=== PATIENT | female | born 1935 | race Caucasian/White ===

== ENCOUNTER 2022-09-16 18:44 | Emergency (ER) | payer MEDICARE ==
[2022-09-16] MEDS ORDERED: Sodium Chloride 0.9% 500 ML 500 ML IV ONE ×2 (19:11→19:19)
--- NOTE | 2022-09-16 19:51 | XRAY ---
Indication: Weakness. Comparison: April 19, 2016 Portable chest demonstrates new mild pulmonary edema without consolidation/large effusion. Heart now enlarged. Findings may represent mild/early cardiac decompensation. Superimposed pneumonia not completely excluded. Stable left upper lobe calcified granuloma, osteopenia, and bony degenerative changes.
[2022-09-16 20:04] LABS: Hematocrit 31.4 % (35-47); Mean Cell Volume 98.7 fL (78-100); Mean Corpuscular Hemoglobin 31.4 pg (26-32); Mean Corpuscular Hgb Concent. 31.8 g/dL (32-36); Mean Platelet Volume 12.7 fL (7.5-11.0); Platelet Count 182 x10^3/uL (150-450); Red Blood Count 3.18 x10^6/uL (4.1-5.4); Red Cell Distribution Width 13.6 % (11.5-14.0); White Blood Count 6.4 x10^3/uL (4.0-10.5)
[2022-09-16] MEDS ORDERED: Cordarone 150 MG/3 ML Injection IV ONE (20:11)
[2022-09-16 20:13] LABS: INR 1.19 (0.8-3.0); PROTIME 12.4 SECONDS (9.4-12.5); PTT 30.2 SECONDS (25.1-36.5)
[2022-09-16] MEDS ORDERED: Cordarone 150 MG/3 ML Injection ONE (20:15)
[2022-09-16 20:20] LABS: ALBUMIN 3.1 g/dL (3.5-5.0); ANION GAP 17.2 MEQ/L (5-15); BILIRUBIN,TOTAL 1.1 mg/dL (0.2-1.3); Creatinine 1 1.82 mg/dL (0.52-1.04); EST GLOMERULAR FILTRATION RATE 27.9 ML/MIN; Potassium 4.6 mmol/L (3.5-5.1); Total Protein 7.6 g/dL (6.3-8.2)
[2022-09-16] MEDS ORDERED: NEXTERONE 360 MG/200 ML BAG 360 MG/200 ML PLAST..BAG IV ONE (20:20)
[2022-09-16] MEDS ORDERED: D5w 100ML Mini Bag 100 ML 100 ML IV ONE (20:20)
[2022-09-16] MEDS: NEXTERONE 360 MG/200 ML BAG 360 MG/200 ML PLAST..BAG IV SCH (20:24)
--- NOTE | 2022-09-16 20:27 | ERPHSYRPT ---
- History of Present Illness Time Seen by Provider: 09/16/22 18:48 Source: patient, family, EMS Exam Limitations: no limitations Patient Subjective Stated Complaint: weakness Triage Nursing Assessment: Patient brought into ED per EMS and transferred to bed with assist of 2. Patient A+O X 2, disoriented to time. EMS reports being called to home due to decreased b/p and decreased O2 sat. Upon assessment vitals WNL. Patient denies pain or discomfort. Patient states she has been feeling weaker the past few days. Physician History: 86-year-old female with history of coronary artery disease, hypertension, hyperlipidemia, congestive heart failure presented in the ER via EMS with chief complaint of generalized weakness fatigue and tiredness for last 2 weeks with progressive worsening. Patient feels weak and cannot walk properly and has been falling. Did not hit her head and no obvious injury reported. Earlier her blood pressure was in 80s and her oxygen saturation was low at home in upper 80s. Patient oxygen saturation is around 94% on presentation in the ER on room air. She denies any chest pain palpitations or shortness of breath. No abdominal pain nausea or vomiting. No fever or chills reported. Patient has recently been seen at primary care and has been getting treatment for bronchitis with amoxicillin. Timing/Duration: week(s) (2), gradual onset, worse Severity: moderate Modifying Factors: Improves With: rest. Worsens With: movement Associated Symptoms: weakness, No nausea, No vomiting, No abdominal pain, No shortness of breath, No heartburn, No diaphoresis, No cough, No chills, No chest pain, No fever, No headaches, No syncope, No seizure Allergies/Adverse Reactions: atorvastatin calcium [From Lipitor] Allergy (Unknown, Verified 09/16/22 18:48) hands became swollen and itched Home Medications: Aspirin 2 tab PO DAILY 02/17/15 [History] Furosemide [Lasix] 40 mg PO DAILY 02/17/15 [History] Pravastatin Sodium 40 mg PO DAILY 02/17/15 [History] Carvedilol 12.5 mg [Coreg 12.5 mg] 12.5 mg PO BID 04/19/16 [History] Losartan Potassium 100 mg PO DAILY 04/19/16 [History] Nitroglycerin 0.4 mg SL UD 04/19/16 [History] Acetaminophen/Diphenhydramine [Tylenol Pm Ex-Strength Caplet] 1 each PO HS PRN 04/21/16 [History] Hx Influenza Vaccination/Date Given: No Hx Pneumococcal Vaccination/Date Given: No Immunizations Up to Date: Yes Travel Risk - International Travel Have you traveled outside of the country in past 3 weeks: No - Coronavirus Screening Are you exhibiting any of the following symptoms?: No Close contact with a COVID-19 positive Pt in past 14-21 Days: No - Vaccine Status Have you recieved a Covid-19 vaccination: No - Review of Systems Constitutional: Fatigue, Weakness Eyes: No Symptoms Ears, Nose, & Throat: No Symptoms Respiratory: No Symptoms Cardiac: No Symptoms Abdominal/Gastrointestinal: No Symptoms Genitourinary Symptoms: No Symptoms Musculoskeletal: Arthralgias Skin: No Symptoms Neurological: No Symptoms Psychological: No Symptoms Endocrine: No Symptoms Hematologic/Lymphatic: No Symptoms Immunological/Allergic: No Symptoms - Past Medical History Pertinent Past Medical History: Yes Neurological History: No Pertinent History ENT History: Cataracts Cardiac History: High Cholesterol, Hypertension, Myocardial Infarction ([place]) Respiratory History: Bronchitis Endocrine Medical History: No Pertinent History Musculoskeletal History: No Pertinent History GI Medical History: Hemorrhoids History: No Pertinent History Psycho-Social History: No Pertinent History Female Reproductive Disorders: No Pertinent History - Past Surgical History Past Surgical History: Yes Neuro Surgical History: No Pertinent History Cardiac: Cardiac Catheterization, Cardiac Stent Respiratory: No Pertinent History Gastrointestinal: No Pertinent History Genitourinary: No Pertinent History Musculoskeletal: No Pertinent History Female Surgical History: Tubal Ligation - Social History Smoking Status: Former smoker How long have you smoked: 30 Exposure to second hand smoke: No Drug Use: none Patient Lives Alone: No - Nursing Vital Signs Nursing Vital Signs: Initial Vital Signs Temperature 98.3 F 09/16/22 18:49 Pulse Rate 67 09/16/22 18:49 Respiratory Rate 18 09/16/22 18:49 Blood Pressure 113/88 09/16/22 18:49 O2 Sat by Pulse Oximetry 97 09/16/22 18:49 Pain Scale Pain Intensity 0 - Physical Exam General Appearance: no apparent distress, alert Eye Exam: eyes nml inspection Ears, Nose, Throat Exam: normal ENT inspection, pharynx normal Neck Exam: normal inspection, full range of motion Respiratory Exam: diminished breath sounds, rhonchi Cardiovascular Exam: normal heart sounds, tachycardia, irregular Back Exam: normal inspection, normal range of motion Extremity Exam: normal inspection, normal range of motion Neurologic Exam: alert, oriented x 3, cooperative Skin Exam: normal color SpO2 Interpretation: normal SpO2: 95 O2 Delivery: Room Air - Course EKG Interpreted by Me: RATE ([id number]), A-fib, NORMAL AXIS, NORMAL INTERVALS, Non-specific ST Changes Ordered Tests: Active Orders 24 hr Category Date Time Status Drum Sealer STAT Care 09/16/22 19:11 Active EKG-ER Only STAT Care 09/16/22 19:10 Active IV Insertion STAT Care 09/16/22 19:10 Active IV Insertion-2nd Peripheral STAT Care 09/16/22 19:34 Active CHEST 1 VIEW (PORTABLE) Stat Exams 09/16/22 19:11 Completed BLOOD CULTURE Stat Lab 09/16/22 19:30 Received CBC W DIFF Stat Lab 09/16/22 19:28 Completed CMP Stat Lab 09/16/22 19:28 Completed CULTURE,URINE Stat Lab 09/16/22 19:30 Received Lactic Acid Stat Lab 09/16/22 19:24 Completed MAGNESIUM Stat Lab 09/16/22 19:28 Completed Manual Differential NC Stat Lab 09/16/22 19:28 Completed NT PRO BNP Stat Lab 09/16/22 19:28 Completed PROCALCITONIN Stat Lab 09/16/22 19:28 Completed PROTIME WITH INR Stat Lab 09/16/22 19:28 Completed PTT Stat Lab 09/16/22 19:28 Completed TROPONIN Q4H Lab 09/16/22 19:28 Completed TROPONIN Q4H Lab 09/16/22 23:15 Ordered TROPONIN Q4H Lab 09/17/22 03:15 Ordered UA W/RFX CULTURE Stat Lab 09/16/22 19:30 Completed Medication Summary Generic Name Dose Route Start Last Admin Trade Name Freq PRN Reason Stop Dose Admin Amiodarone HCl/Dextrose 360 mg in 200 mls @ 33 mls/hr 09/16/22 20:15 09/16/22 20:24 Nexterone 360 Mg/200 Ml Bag IV 10/16/22 20:14 33 mls/hr .Q6H4M MARGIE 33 mls/hr Administration Protocol Sodium Chloride 1,000 mls @ 100 mls/hr 09/16/22 21:30 09/16/22 21:27 Sodium Chloride 0.9% 1000 Ml IV 10/16/22 21:29 100 mls/hr .Q10H MARGIE Administration Discontinued Medications Generic Name Dose Route Start Last Admin Trade Name Shelley PRN Reason Stop Dose Admin Amiodarone HCl 150 mg 09/16/22 20:11 09/16/22 20:22 Amiodarone Hcl 150 Mg/3 Ml Vial IV 09/16/22 20:12 150 mg STAT ONE Administration Amiodarone HCl Confirm 09/16/22 20:15 Amiodarone Hcl 150 Mg/3 Ml Vial Administered 09/16/22 20:16 Dose 150 mg .ROUTE .STK-MED ONE Sodium Chloride 500 mls @ 500 mls/hr 09/16/22 19:11 09/16/22 20:20 Sodium Chloride 0.9% 500 Ml IV 09/16/22 20:10 Infused .Q1H ONE Infusion Sodium Chloride Confirm 09/16/22 19:19 Sodium Chloride 0.9% 500 Ml Administered 09/16/22 19:20 Dose 500 mls @ ud IV .STK-MED ONE Dextrose Confirm 09/16/22 20:20 D5w 100ml Mini Bag 100 Ml Administered 09/16/22 20:21 Dose 100 mls @ ud IV .STK-MED ONE Piperacillin Sod/Tazobactam 100 mls @ 200 mls/hr 09/16/22 21:36 09/16/22 21:58 Sod 2.25 gm/ Sodium Chloride IV 09/16/22 22:05 200 mls/hr STAT ONE Administration Sodium Chloride Confirm 09/16/22 21:40 Sodium Chloride 100ml Mini-Bag Plus Administered 09/16/22 21:41 Dose 100 mls @ ud IV .STK-MED ONE Sodium Chloride Confirm 09/16/22 21:41 Sodium Chloride 100ml Mini-Bag Plus Administered 09/16/22 21:42 Dose 100 mls @ ud IV .STK-MED ONE Lab/Rad Data: Laboratory Result Diagrams 09/16/22 19:28 09/16/22 19:28 Laboratory Results 09/16/22 09/16/22 09/16/22 Range/Units 19:30 19:28 19:28 WBC (4.0-10.5) x10^3/uL RBC (4.1-5.4) x10^6/uL Hgb (12.0-16.0) g/dL Hct (35-47) % MCV (78-100) fL MCH (26-32) pg MCHC (32-36) g/dL RDW (11.5-14.0) % Plt Count (150-450) x10^3/uL MPV (7.5-11.0) fL PT (9.4-12.5) SECONDS INR (0.8-3.0) APTT (25.1-36.5) SECONDS Sodium (137-145) mmol/L Potassium (3.5-5.1) mmol/L Chloride (98-107) mmol/L Carbon Dioxide (22-30) mmol/L Anion Gap (5-15) MEQ/L BUN (7-17) mg/dL Creatinine (0.52-1.04) mg/dL Estimated GFR ML/MIN Glucose (74-106) mg/dL Lactic Acid (0.4-2.0) Calcium (8.4-10.2) mg/dL Magnesium (1.6-2.3) mg/dL Total Bilirubin (0.2-1.3) mg/dL AST (14-36) U/L ALT (0-35) U/L Alkaline Phosphatase (38-126) U/L Troponin I 0.064 H* (0.000-0.034) ng/mL NT-Pro-B Natriuret Pep (0-1800) pg/mL Serum Total Protein (6.3-8.2) g/dL Albumin (3.5-5.0) g/dL Procalcitonin 0.109 H (0.030-0.080) ng/mL Urinalys Dipstick Clnc MAIN LAB Urine Color YELLOW (YELLOW) Urine Appearance CLEAR (CLEAR) Urine pH 5.0 (5-6) Ur Specific [place] 1.025 (1.005-1.025) POC Urine Protein Conf NEGATIVE (Negative) Urine Ketones TRACE A (NEGATIVE) Urine Nitrite NEGATIVE (NEGATIVE) Urine Bilirubin MODERATE A (NEGATIVE) Urine Urobilinogen 1 A (0-1) mg/dL Urine Leukocytes NEGATIVE (NEGATIVE) Urine WBC (Auto) NONE (0-5) /HPF Urine RBC (Auto) 0-2 (0-2) /HPF U Hyaline Cast (Auto) 6-10 A (0-2) /LPF U Epithel Cells (Auto) NONE (FEW) /HPF Urine Bacteria (Auto) RARE (NEGATIVE) /HPF Urine RBC NEGATIVE (0-5) Ryder/ul Urine Mucus (Auto) SLIGHT A (NEGATIVE) /HPF Ur Culture Indicated? YES Urine Glucose NEGATIVE (NEGATIVE) mg/dL 09/16/22 09/16/22 09/16/22 Range/Units 19:28 19:28 19:28 WBC 6.4 (4.0-10.5) x10^3/uL RBC 3.18 L (4.1-5.4) x10^6/uL Hgb 10.0 L (12.0-16.0) g/dL Hct 31.4 L (35-47) % MCV 98.7 (78-100) fL MCH 31.4 (26-32) pg MCHC 31.8 L (32-36) g/dL RDW 13.6 (11.5-14.0) % Plt Count 182 (150-450) x10^3/uL MPV 12.7 H (7.5-11.0) fL PT 12.4 (9.4-12.5) SECONDS INR 1.19 (0.8-3.0) APTT 30.2 (25.1-36.5) SECONDS Sodium 136 L (137-145) mmol/L Potassium 4.6 (3.5-5.1) mmol/L Chloride 103 (98-107) mmol/L Carbon Dioxide 21 L (22-30) mmol/L Anion Gap 17.2 H (5-15) MEQ/L BUN 59 H (7-17) mg/dL Creatinine 1.82 H (0.52-1.04) mg/dL Estimated GFR 27.9 ML/MIN Glucose 95 (74-106) mg/dL Lactic Acid (0.4-2.0) Calcium 8.0 L (8.4-10.2) mg/dL Magnesium 2.0 (1.6-2.3) mg/dL Total Bilirubin 1.10 (0.2-1.3) mg/dL AST 26 (14-36) U/L ALT 14 (0-35) U/L Alkaline Phosphatase 46 (38-126) U/L Troponin I (0.000-0.034) ng/mL NT-Pro-B Natriuret Pep 52819 H (0-1800) pg/mL Serum Total Protein 7.6 (6.3-8.2) g/dL Albumin 3.1 L (3.5-5.0) g/dL Procalcitonin (0.030-0.080) ng/mL Urinalys Dipstick Clnc Urine Color (YELLOW) Urine Appearance (CLEAR) Urine pH (5-6) Ur Specific [place] (1.005-1.025) POC Urine Protein Conf (Negative) Urine Ketones (NEGATIVE) Urine Nitrite (NEGATIVE) Urine Bilirubin (NEGATIVE) Urine Urobilinogen (0-1) mg/dL Urine Leukocytes (NEGATIVE) Urine WBC (Auto) (0-5) /HPF Urine RBC (Auto) (0-2) /HPF U Hyaline Cast (Auto) (0-2) /LPF U Epithel Cells (Auto) (FEW) /HPF Urine Bacteria (Auto) (NEGATIVE) /HPF Urine RBC (0-5) Ryder/ul Urine Mucus (Auto) (NEGATIVE) /HPF Ur Culture Indicated? Urine Glucose (NEGATIVE) mg/dL 09/16/22 Range/Units 19:24 WBC (4.0-10.5) x10^3/uL RBC (4.1-5.4) x10^6/uL Hgb (12.0-16.0) g/dL Hct (35-47) % MCV (78-100) fL MCH (26-32) pg MCHC (32-36) g/dL RDW (11.5-14.0) % Plt Count (150-450) x10^3/uL MPV (7.5-11.0) fL PT (9.4-12.5) SECONDS INR (0.8-3.0) APTT (25.1-36.5) SECONDS Sodium (137-145) mmol/L Potassium (3.5-5.1) mmol/L Chloride (98-107) mmol/L Carbon Dioxide (22-30) mmol/L Anion Gap (5-15) MEQ/L BUN (7-17) mg/dL Creatinine (0.52-1.04) mg/dL Estimated GFR ML/MIN Glucose (74-106) mg/dL Lactic Acid 1.5 (0.4-2.0) Calcium (8.4-10.2) mg/dL Magnesium (1.6-2.3) mg/dL Total Bilirubin (0.2-1.3) mg/dL AST (14-36) U/L ALT (0-35) U/L Alkaline Phosphatase (38-126) U/L Troponin I (0.000-0.034) ng/mL NT-Pro-B Natriuret Pep (0-1800) pg/mL Serum Total Protein (6.3-8.2) g/dL Albumin (3.5-5.0) g/dL Procalcitonin (0.030-0.080) ng/mL Urinalys Dipstick Clnc Urine Color (YELLOW) Urine Appearance (CLEAR) Urine pH (5-6) Ur Specific [place] (1.005-1.025) POC Urine Protein Conf (Negative) Urine Ketones (NEGATIVE) Urine Nitrite (NEGATIVE) Urine Bilirubin (NEGATIVE) Urine Urobilinogen (0-1) mg/dL Urine Leukocytes (NEGATIVE) Urine WBC (Auto) (0-5) /HPF Urine RBC (Auto) (0-2) /HPF U Hyaline Cast (Auto) (0-2) /LPF U Epithel Cells (Auto) (FEW) /HPF Urine Bacteria (Auto) (NEGATIVE) /HPF Urine RBC (0-5) Ryder/ul Urine Mucus (Auto) (NEGATIVE) /HPF Ur Culture Indicated? Urine Glucose (NEGATIVE) mg/dL - Progress Progress: improved, re-examined Progress Note: 09/16/22 21:53 86 years old is evaluated for generalized weakness. Patient is hypotensive on presentation, given fluid bolus and still hypotensive and has A. fib with RVR with no previous history. Work-up showed normal white count, normal lactate and chest x-ray showed finding consistent with pulmonary edema/congestion with elevated BNP and initial troponin 1.061. EKG did not show ST elevation but A. fib with RVR. Patient has no chest pain at all. She is not short of breath. She is started on amiodarone and now heart rate in low 100s. Does have elevated procalcitonin and chest x-ray showed questionable pneumonia as well, given a dose of Zosyn. Discussed with Dr. Vaughan, recommended transfer to facility with cardiology services. [facility] is at diversion, called [facility] and waiting for callback. Plan discussed with patient who understand and agrees with it. 09/16/22 22:[address] Brice at [facility], reviewed history, work-up and agreed with transfer. Discussed with : Bárbara Counseled pt/family regarding: lab results, diagnosis, rad results - Departure Departure Disposition: Transfer Clinical Impression: Atrial fibrillation with RVR, CHF exacerbation, AJ (acute kidney injury), AJ Condition: Stable Critical Care Time: No Referrals: CORKY DUGGAN [Primary Care Provider] - Follow up/PCP as directed Instructions: Heart Failure
[2022-09-16 20:31] LABS: Appearance CLEAR (CLEAR); Bilirubin MODERATE (NEGATIVE); Dipstick done @ ? MAIN LAB; Glucose NEGATIVE (NEGATIVE); Ketones TRACE (NEGATIVE); Nitrite NEGATIVE (NEGATIVE); Protein,Urine Dip NEGATIVE (Negative); RBC NEGATIVE Ery/ul (0-5); Specific Gravity 1.025 (1.005-1.025); Urobilinogen 1 mg/dL (0-1)
[2022-09-16 20:36] LABS: Bacteria RARE /HPF (NEGATIVE); Mucus SLIGHT /HPF (NEGATIVE); RBC 0-2 /HPF (0-2)
[2022-09-16 20:39] LABS: Urine Cultured Indicated? YES
[2022-09-16] MEDS ORDERED: Sodium Chloride 0.9% 1000 ML 1,000 ML IV SCH (21:30)
[2022-09-16] MEDS ORDERED: Piperacillin/Tazobactam 2.25 GM 2.25 GM in Sodium Chloride 100ML MINI-BAG PLUS 100 ML IV ONE (21:36)
[2022-09-16] MEDS ORDERED: Sodium Chloride 100ML MINI-BAG PLUS 0 ML IV ONE (21:40)
[2022-09-16] MEDS ORDERED: Sodium Chloride 100ML MINI-BAG PLUS 100 ML IV ONE (21:41)
[2022-09-16] MEDS ORDERED: Lanoxin 0.5 MG/2 ML INJECTION IV ONE (22:47)
[2022-09-16] MEDS ORDERED: Lanoxin 0.5 MG/2 ML INJECTION ONE (22:49)
[2022-09-16] MEDS ORDERED: Dopamine 400 MG/D5W 250ML PREMIX 250 ML IV PRN (23:53)
[2022-09-16 23:58] LABS: Eosinophil 2 % (0.00-3.0); Lymphocytes 21 % (24-44); Monocyte 4 % (0.0-12.0); Total Cells Counted 100
[2022-09-16 23:59] LABS: Platelet Estimate NORMAL (NORMAL)
[2022-09-17] MEDS ORDERED: NEXTERONE 360 MG/200 ML BAG 360 MG/200 ML PLAST..BAG IV ONE (02:27)
[2022-09-17] MEDS: NEXTERONE 360 MG/200 ML BAG 360 MG/200 ML PLAST..BAG IV SCH (02:30)
[2022-09-17 03:52] VITALS: BP 114/78; PULSE 104; O2SAT 96
== END 2022-09-17 03:53 | disposition short-term general hospital (02) ==
LOC: ED 18:44
DX: I48.20 Chronic atrial fibrillation, unspecified (principal); I11.0 Hypertensive heart disease with heart failure; I50.9 Heart failure, unspecified; N17.9 Acute kidney failure, unspecified; R53.1 Weakness; Z91.81 History of falling; E78.5 Hyperlipidemia, unspecified; Z79.899 Other long term (current) drug therapy; Z28.310 Unvaccinated for COVID-19
CPT/HCPCS: 36000; 36415; 71045; 80053; 81015; 83605; 83735; 83880; 84145; 84484; 85025; 85610; 85730; 87040; 87086; 93005; 93041; 96360; 96361; 96374; 96375; 96376; 99285; J0282; J1160; J1265; J2543

== ENCOUNTER 2022-11-11 12:03 | Inpatient (IN) | payer MEDICARE, OTHER ==
--- NOTE | 2022-11-11 12:13 | ERPHSYRPT ---
- History of Present Illness Time Seen by Provider: 11/11/22 12:12 Source: patient, family, EMS, old records Exam Limitations: no limitations Patient Subjective Stated Complaint: PT states "I was getting up to the bathroom and missed the pot and fell." Triage Nursing Assessment: PT presented alert and slightly confused. Pt left ankle has obvious deformity. Pt speech is slow and deliberate. PT no other injuries noted. CSM X 4 Physician History: This is an 87-year-old white female patient Dr. Duggan who was brought into the emergency department by EMS and is on hospice for congestive heart failure and chronic weakness and recurrent falls. Patient has a history of CHF, atrial fibrillation, coronary artery disease and hypertension. She arrives emergency department with a systolic blood pressure of 109. Patient presents to the emergency department with left ankle pain after fall. She was getting up to use the bathroom when she fell and twisted her left ankle. There is some swelling and bruising in the lateral aspect of the left ankle with mild deformity present. Patient denies chest pain. She denies shortness of breath. Occurred: just prior to arrival Reason for Fall: tripped Injuries/Pain Location: lower extremity Loss of Consciousness: no loss of consciousness Quality: aching Severity of Pain-Max: mild (When moving) Severity of Pain-Current: none (Denies pain when not moving) Modifying Factors: Improves With: movement Associated Symptoms (Fall): trouble walking Allergies/Adverse Reactions: atorvastatin calcium [From Lipitor] Allergy (Unknown, Verified 09/16/22 18:48) hands became swollen and itched Home Medications: Aspirin 1 tab PO DAILY 02/17/15 [History] Furosemide [Lasix] 40 mg PO DAILY 02/17/15 [History] Pravastatin Sodium 80 mg PO DAILY 02/17/15 [History] Acetaminophen/Diphenhydramine [Tylenol Pm Ex-Strength Caplet] 650 mg PO HS PRN 04/21/16 [History] Apixaban [Eliquis] 2.5 mg PO BID 11/11/22 [History] Cholecalciferol (Vitamin D3) [Vitamin D] 1 tablet PO DAILY 11/11/22 [History] Magnesium Hydroxide 30 ml [Milk of Magnesia 30 ml] 30 ml PO DAILY PRN PRN 11/11/22 [History] Metoprolol Succinate 25 mg PO DAILY 11/11/22 [History] Hx Tetanus, Diphtheria Vaccination/Date Given: No Hx Influenza Vaccination/Date Given: No Hx Pneumococcal Vaccination/Date Given: No Immunizations Up to Date: Yes Travel Risk - International Travel Have you traveled outside of the country in past 3 weeks: No - Coronavirus Screening Are you exhibiting any of the following symptoms?: No Close contact with a COVID-19 positive Pt in past 14-21 Days: No - Vaccine Status Have you recieved a Covid-19 vaccination: No - Review of Systems Constitutional: Weakness Eyes: No Symptoms Ears, Nose, & Throat: No Symptoms (Chronic) Respiratory: No Symptoms Cardiac: No Symptoms Abdominal/Gastrointestinal: No Symptoms Genitourinary Symptoms: No Symptoms Musculoskeletal: Injury (Left ankle) Skin: No Symptoms Neurological: No Symptoms Psychological: No Symptoms Endocrine: No Symptoms Hematologic/Lymphatic: No Symptoms Immunological/Allergic: No Symptoms All Other Systems: Reviewed and Negative - Past Medical History Pertinent Past Medical History: Yes Neurological History: No Pertinent History ENT History: Cataracts Cardiac History: High Cholesterol, Hypertension, Myocardial Infarction (NH) Respiratory History: Bronchitis Endocrine Medical History: No Pertinent History Musculoskeletal History: No Pertinent History GI Medical History: Hemorrhoids History: No Pertinent History Psycho-Social History: No Pertinent History Female Reproductive Disorders: No Pertinent History - Past Surgical History Past Surgical History: Yes Neuro Surgical History: No Pertinent History Cardiac: Cardiac Catheterization, Cardiac Stent Respiratory: No Pertinent History Gastrointestinal: No Pertinent History Genitourinary: No Pertinent History Musculoskeletal: No Pertinent History Female Surgical History: Tubal Ligation - Social History Smoking Status: Former smoker How long have you smoked: 30 Exposure to second hand smoke: No Drug Use: none Patient Lives Alone: No - Nursing Vital Signs Nursing Vital Signs: Initial Vital Signs Temperature 97.3 F 11/11/22 12:05 Pulse Rate 111 H 11/11/22 12:05 Respiratory Rate 20 11/11/22 12:05 Blood Pressure 109/67 11/11/22 12:05 O2 Sat by Pulse Oximetry 96 11/11/22 12:05 Pain Scale Pain Intensity 4 - Chaim Coma Score Best Eye Response (Chaim): (4) open spontaneously Best Verbal Response ([place]): (5) oriented Best Motor Response (Chaim): (6) obeys commands [place] Total: 15 - Physical Exam General Appearance: mild distress, alert, anxiety Head Injury: no evidence of injury Eye Exam: PERRL/EOMI, eyes nml inspection ENT Exam: airway nml, nml ext.inspection, No evidence of ENT injury Neck Exam: supple, trachea midline, full range of motion, normal alignment, normal inspection Respiratory/Chest Exam: normal breath sounds, No chest tenderness, No respiratory distress, No ecchymosis, No crepitus Cardiovascular Exam: tachycardia Gastrointestinal Exam: soft, normal bowel sounds, No tenderness Rectal Exam: not done Back Exam: normal inspection, normal range of motion, No CVA tenderness, No vertebral tenderness Extremity Exam: capillary refill <3 sec, pelvis stable, deformities (Left ankle lateral aspect), bony point tenderness (Left ankle lateral aspect), evidence of injury (Left ankle lateral aspect), tenderness (Left ankle lateral aspect), other (Left ankle) Neurologic Exam: alert, oriented x 3, cooperative, 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 Skin Exam: normal color, warm, dry SpO2 Interpretation: normal SpO2: 96 O2 Delivery: Room Air - Course Nursing assessment & vital signs reviewed: Yes Ordered Tests: Active Orders 24 hr Category Date Time Status Starkey [Catheter-Gray Starkey] STAT Care 11/11/22 13:59 Active IV Insertion STAT Care 11/11/22 12:45 Active LOWER LEG Stat Exams 11/11/22 12:14 Taken CBC W DIFF Stat Lab 11/11/22 13:02 Completed CMP Stat Lab 11/11/22 13:02 Completed CULTURE,URINE Stat Lab 11/11/22 13:00 Received UA W/RFX UR CULTURE Stat Lab 11/11/22 13:00 Completed Transfer Order Routine Transfer 11/11/22 Ordered Medication Summary Generic Name Dose Route Start Last Admin Trade Name Freq PRN Reason Stop Dose Admin Sodium Chloride 1,000 mls @ 100 mls/hr 11/11/22 12:45 11/11/22 13:07 Sodium Chloride 0.9% 1000 Ml IV 12/11/22 12:44 100 mls/hr .Q10H MARGIE Administration Ceftriaxone Sodium/Dextrose 1 g in 50 mls @ 100 mls/hr 11/11/22 14:33 Rocephin 1 Gm-D5w 50 Ml Bag IV 11/11/22 15:02 STAT STA Discontinued Medications Generic Name Dose Route Start Last Admin Trade Name Freq PRN Reason Stop Dose Admin Ceftriaxone Sodium/Dextrose Confirm 01/14/23 14:47 Rocephin 1 Gm-D5w 50 Ml Bag Administered 11/11/22 14:48 Dose 1 g in 50 mls @ ud IV .STK-MED ONE Morphine Sulfate 2 mg 11/11/22 12:45 11/11/22 13:06 Morphine Sulfate 2 Mg/Ml Inj IV 11/11/22 12:46 2 mg STAT ONE Administration Morphine Sulfate Confirm 11/11/22 13:03 Morphine Sulfate 2 Mg/Ml Inj Administered 11/11/22 13:04 Dose 2 mg .ROUTE .STK-MED ONE Ondansetron HCl 4 mg 11/11/22 12:45 11/11/22 13:07 Ondansetron Hcl 4 Mg/2 Ml Vial IV 11/11/22 12:46 4 mg STAT ONE Administration Ondansetron HCl Confirm 11/11/22 13:03 Ondansetron Hcl 4 Mg/2 Ml Vial Administered 11/11/22 13:04 Dose 4 mg .ROUTE .STK-MED ONE Lab/Rad Data: Laboratory Result Diagrams 11/11/22 13:02 11/11/22 13:02 Laboratory Results 11/11/22 11/11/22 11/11/22 Range/Units Unknown 13:02 13:02 WBC 10.1 (4.0-10.5) x10^3/uL RBC 3.01 L (4.1-5.4) x10^6/uL Hgb 9.6 L (12.0-16.0) g/dL Hct 31.1 L (35-47) % MCV 103.3 H (78-100) fL MCH 31.9 (26-32) pg MCHC 30.9 L (32-36) g/dL RDW 14.7 H (11.5-14.0) % Plt Count 200 (150-450) x10^3/uL MPV 11.4 H (7.5-11.0) fL Gran % 78.1 H (36.0-66.0) % Immature Gran % (Auto) 1.0 H (0.00-0.4) % Nucleat RBC Rel Count 0.0 (0.00-0.1) % Eos # (Auto) 0.04 (0-0.5) x10^3/uL Immature Gran # (Auto) 0.10 H (0.00-0.03) x10^3u/L Absolute Lymphs (auto) 1.19 (1.0-4.6) x10^3/uL Absolute Monos (auto) 0.85 (0.0-1.3) x10^3/uL Absolute Nucleated RBC 0.00 (0.00-0.01) x10^3u/L Lymphocytes % 11.7 L (24.0-44.0) % Monocytes % 8.4 (0.0-12.0) % Eosinophils % 0.4 (0.00-5.0) % Basophils % 0.4 (0.0-0.4) % Absolute Granulocytes 7.92 H (1.4-6.9) x10^3/uL Basophils # 0.04 (0-0.4) x10^3/uL Sodium 135 L (137-145) mmol/L Potassium 3.9 (3.5-5.1) mmol/L Chloride 97 L (98-107) mmol/L Carbon Dioxide 34 H (22-30) mmol/L Anion Gap 8.5 (5-15) MEQ/L BUN 51 H (7-17) mg/dL Creatinine 4.96 H (0.52-1.04) mg/dL Estimated GFR 8.8 ML/MIN Glucose 112 H (74-106) mg/dL Calcium 15.3 H* (8.4-10.2) mg/dL Total Bilirubin 0.60 (0.2-1.3) mg/dL AST 31 (14-36) U/L ALT 26 (0-35) U/L Alkaline Phosphatase 67 (38-126) U/L Serum Total Protein 7.4 (6.3-8.2) g/dL Albumin 3.0 L (3.5-5.0) g/dL Urine Color (Yellow) Urine Appearance (Clear) Urine pH (4.6-8.0) Ur Specific [place] (1.005-1.030) Urine Protein (Negative) Urine Glucose (UA) (Negative) mg/dL Urine Ketones (Negative) Urine Blood (Negative) Urine Nitrite (Negative) Urine Bilirubin (Negative) Urine Urobilinogen (0.2) mg/dL Ur Leukocyte Esterase (Negative) U Hyaline Cast (Auto) (0-2) /LPF Urine Microscopic RBC (0-5) /HPF Urine Microscopic WBC (0-5) /HPF Ur Epithelial Cells (None Seen) /HPF Urine Bacteria (None Seen) /HPF Urine Culture Reflexed (NO) Influenza Type A Ag NEGATIVE (NEGATIVE) Influenza Type B Ag NEGATIVE (NEGATIVE) RSV (PCR) NEGATIVE (Negative) SARS-CoV-2 (PCR) NEGATIVE (NEGATIVE) 11/11/22 Range/Units 13:00 WBC (4.0-10.5) x10^3/uL RBC (4.1-5.4) x10^6/uL Hgb (12.0-16.0) g/dL Hct (35-47) % MCV (78-100) fL MCH (26-32) pg MCHC (32-36) g/dL RDW (11.5-14.0) % Plt Count (150-450) x10^3/uL MPV (7.5-11.0) fL Gran % (36.0-66.0) % Immature Gran % (Auto) (0.00-0.4) % Nucleat RBC Rel Count (0.00-0.1) % Eos # (Auto) (0-0.5) x10^3/uL Immature Gran # (Auto) (0.00-0.03) x10^3u/L Absolute Lymphs (auto) (1.0-4.6) x10^3/uL Absolute Monos (auto) (0.0-1.3) x10^3/uL Absolute Nucleated RBC (0.00-0.01) x10^3u/L Lymphocytes % (24.0-44.0) % Monocytes % (0.0-12.0) % Eosinophils % (0.00-5.0) % Basophils % (0.0-0.4) % Absolute Granulocytes (1.4-6.9) x10^3/uL Basophils # (0-0.4) x10^3/uL Sodium (137-145) mmol/L Potassium (3.5-5.1) mmol/L Chloride (98-107) mmol/L Carbon Dioxide (22-30) mmol/L Anion Gap (5-15) MEQ/L BUN (7-17) mg/dL Creatinine (0.52-1.04) mg/dL Estimated GFR ML/MIN Glucose (74-106) mg/dL Calcium (8.4-10.2) mg/dL Total Bilirubin (0.2-1.3) mg/dL AST (14-36) U/L ALT (0-35) U/L Alkaline Phosphatase (38-126) U/L Serum Total Protein (6.3-8.2) g/dL Albumin (3.5-5.0) g/dL Urine Color Yellow (Yellow) Urine Appearance Cloudy A (Clear) Urine pH 6.5 (4.6-8.0) Ur Specific [place] 1.010 (1.005-1.030) Urine Protein 30 (Negative) Urine Glucose (UA) Negative (Negative) mg/dL Urine Ketones Negative (Negative) Urine Blood Large A (Negative) Urine Nitrite Negative (Negative) Urine Bilirubin Negative (Negative) Urine Urobilinogen 0.2 (0.2) mg/dL Ur Leukocyte Esterase Small A (Negative) U Hyaline Cast (Auto) 3-5 A (0-2) /LPF Urine Microscopic RBC >100 A (0-5) /HPF Urine Microscopic WBC 21-50 A (0-5) /HPF Ur Epithelial Cells Rare (None Seen) /HPF Urine Bacteria Few A (None Seen) /HPF Urine Culture Reflexed ORDERED SEPARATELY (NO) Influenza Type A Ag (NEGATIVE) Influenza Type B Ag (NEGATIVE) RSV (PCR) (Negative) SARS-CoV-2 (PCR) (NEGATIVE) - Progress Progress: improved, pain not gone completely, re-examined Progress Note: 11/11/22 14:45 Medical decision making: This patient has a minimally displaced distal spiral fibular fracture of the left ankle. Patient also has a urinary tract infection and hypercalcemia and anemia. I spoke with Dr. Vaughan who is a hospitalist covering today. We will admit her into the hospital and provide her with Starkey catheter, IV hydration, IV antibiotics and pain control. We will obtain a consultation with Dr. Escalante and podiatry and obtain a consultation with discharge planning. We will repeat labs in the morning. Discussed with : Bárbara Counseled pt/family regarding: lab results, diagnosis, rad results - Departure Departure Disposition: In-patient Admission Clinical Impression: Fall, Closed left fibular fracture, Hypercalcemia, Anemia, UTI (urinary tract infection) Condition: Stable Critical Care Time: No Referrals: CORKY DUGGAN [Primary Care Provider] - Follow up/PCP as directed
[2022-11-11] MEDS ORDERED: MORPHINE SULFATE 2 MG INJ IV ONE (12:45)
[2022-11-11] MEDS ORDERED: Zofran 4 MG/2 ML VIAL IV ONE (12:45)
[2022-11-11] MEDS ORDERED: Sodium Chloride 0.9% 1000 ML 1,000 ML IV SCH (12:45)
[2022-11-11] MEDS ORDERED: MORPHINE SULFATE 2 MG INJ ONE (13:03)
[2022-11-11] MEDS ORDERED: Sodium Chloride 0.9% 1000 ML 1,000 ML ONE (13:03)
[2022-11-11] MEDS ORDERED: Zofran 4 MG/2 ML VIAL ONE (13:03)
[2022-11-11 13:06] LABS: Absolute Neutrophil Ct (ANC) 7.92 x10^3/uL (1.4-6.9); BASOPHIL % 0.4 % (0.0-0.4); Basophil (Absolute #) 0.04 x10^3/uL (0-0.4); Eosinophil % 0.4 % (0.00-5.0); Eosinophil (Absolute #) 0.04 x10^3/uL (0-0.5); Hematocrit 31.1 % (35-47); Hemoglobin 9.6 g/dL (12.0-16.0); Lymphocyte (Absolute #) 1.19 x10^3/uL (1.0-4.6); Lymphocytes % 11.7 % (24.0-44.0); Mean Cell Volume 103.3 fL (78-100); Mean Corpuscular Hemoglobin 31.9 pg (26-32); Mean Corpuscular Hgb Concent. 30.9 g/dL (32-36); Mean Platelet Volume 11.4 fL (7.5-11.0); Monocyte (Absolute #) 0.85 x10^3/uL (0.0-1.3); Monocytes % 8.4 % (0.0-12.0); Neutrophil % 78.1 % (36.0-66.0); Platelet Count 200 x10^3/uL (150-450); Red Blood Count 3.01 x10^6/uL (4.1-5.4); Red Cell Distribution Width 14.7 % (11.5-14.0); White Blood Count 10.1 x10^3/uL (4.0-10.5)
[2022-11-11 13:32] LABS: ANION GAP 8.5 MEQ/L (5-15); BILIRUBIN,TOTAL 0.6 mg/dL (0.2-1.3); Creatinine 1 4.96 mg/dL (0.52-1.04); EST GLOMERULAR FILTRATION RATE 8.8 ML/MIN; Potassium 3.9 mmol/L (3.5-5.1); Total Protein 7.4 g/dL (6.3-8.2)
[2022-11-11 13:53] LABS: Calcium 15.3 mg/dL (8.4-10.2)
[2022-11-11 14:06] LABS: INFLUENZA A NEGATIVE (NEGATIVE); INFLUENZA B NEGATIVE (NEGATIVE); RESPIRATORY SYNCTIAL VIRUS NEGATIVE (Negative); SARS-CoV-2 Xpert Express NEGATIVE (NEGATIVE)
[2022-11-11 14:08] LABS: Appearance Cloudy (Clear); Bilirubin Negative (Negative); Blood Large (Negative); Epithelial Cells Rare /HPF (None Seen); Glucose, Urine Negative (Negative); Ketones Negative (Negative); Leukocyte Esterase Small (Negative); Nitrite Negative (Negative); Ph 6.5 (4.6-8.0); Protein,Urine Dip 30 (Negative); RBC >100 /HPF (0-5); Urobilinogen 0.2 mg/dL (0.2); WBC 21-50 /HPF (0-5)
[2022-11-11 14:11] LABS: ADD URINE CULTURE? ORDERED SEPARATELY (NO); Bacteria Few /HPF (None Seen)
[2022-11-11] MEDS ORDERED: ROCEPHIN 1 Gm-D5w 50 ml Bag** 1 G/50 ML IVPB IV STA (14:33)
[2022-11-11] MEDS ORDERED: ROCEPHIN 1 Gm-D5w 50 ml Bag** 1 G/50 ML IVPB IV ONE (14:47)
[2022-11-11 15:23] LABS: POTASSIUM, URINE RANDOM 63.7 mmol/L
[2022-11-11] MEDS ORDERED: Zofran 4 MG/2 ML VIAL IV PRN (15:48)
[2022-11-11] MEDS ORDERED: TYLENOL 325 MG PO PRN (15:48)
--- NOTE | 2022-11-11 19:54 | XRAY ---
Indication: Pain following fall. Comparison: None 2 view left lower leg demonstrates minimally displaced distal fibula oblique fracture with lateral subluxed talus and soft tissue swelling. Incidental tiny plantar heel spur and minimal scattered vascular calcifications. No other bony, joint, or soft tissue abnormalities. Comment: Fracture subluxation not reported by the interpreting ER clinician. Telephone report was given to Dr Hyde at 1950 hrs on November 11, 2020.
[2022-11-11] MEDS: ELIQUIS 2.5 MG TABLET PO SCH (22:17)
[2022-11-12] MEDS ORDERED: Sodium Chloride 0.9% 1000 ML 1,000 ML ONE (04:56)
[2022-11-12] MEDS: Sodium Chloride 0.9% 1000 ML 1,000 ML IV SCH (04:57)
[2022-11-12 05:41] LABS: Absolute Neutrophil Ct (ANC) 5.96 x10^3/uL (1.4-6.9); BASOPHIL % 0.3 % (0.0-0.4); Basophil (Absolute #) 0.02 x10^3/uL (0-0.4); Eosinophil % 0.9 % (0.00-5.0); Eosinophil (Absolute #) 0.07 x10^3/uL (0-0.5); Hematocrit 30.4 % (35-47); Hemoglobin 9.1 g/dL (12.0-16.0); IMMATURE GRAN # 0.05 x10^3u/L (0.00-0.03); IMMATURE GRAN % 0.7 % (0.00-0.4); Lymphocyte (Absolute #) 0.84 x10^3/uL (1.0-4.6); Lymphocytes % 10.9 % (24.0-44.0); Mean Cell Volume 104.5 fL (78-100); Mean Corpuscular Hemoglobin 31.3 pg (26-32); Mean Corpuscular Hgb Concent. 29.9 g/dL (32-36); Mean Platelet Volume 11.1 fL (7.5-11.0); Monocyte (Absolute #) 0.74 x10^3/uL (0.0-1.3); Monocytes % 9.6 % (0.0-12.0); Neutrophil % 77.6 % (36.0-66.0); Platelet Count 155 x10^3/uL (150-450); Red Blood Count 2.91 x10^6/uL (4.1-5.4); Red Cell Distribution Width 14.8 % (11.5-14.0); White Blood Count 7.7 x10^3/uL (4.0-10.5)
[2022-11-12 06:25] LABS: ALBUMIN 2.8 g/dL (3.5-5.0); ANION GAP 8.7 MEQ/L (5-15); BILIRUBIN,TOTAL 0.4 mg/dL (0.2-1.3); Creatinine 1 5.23 mg/dL (0.52-1.04); EST GLOMERULAR FILTRATION RATE 8.2 ML/MIN; Potassium 3.8 mmol/L (3.5-5.1); Total Protein 6.8 g/dL (6.3-8.2)
[2022-11-12 06:27] LABS: Calcium 14.7 mg/dL (8.4-10.2)
[2022-11-12] MEDS ORDERED: MILK OF MAGNESIA 30 ML PO PRN (07:51)
[2022-11-12] MEDS ORDERED: ACETAMINOPHEN PO PRN (07:51)
[2022-11-12] MEDS ORDERED: [UNRECOGNIZED DRUG - OTHER] PO PRN (07:51)
[2022-11-12] MEDS ORDERED: VITAMIN D PO SCH (08:00)
[2022-11-12] MEDS: ROCEPHIN 1 Gm-D5w 50 ml Bag** 1 G/50 ML IVPB IV SCH (08:35)
[2022-11-12] MEDS: MORPHINE SULFATE 2 MG INJ IV PRN ×2 (09:16→16:37)
[2022-11-12] MEDS: Cordarone 200 MG PO SCH (09:23)
[2022-11-12] MEDS: ELIQUIS 2.5 MG TABLET PO SCH ×2 (09:27→21:49)
[2022-11-12] MEDS ORDERED: ELIQUIS 2.5 MG TABLET PO SCH (10:00)
[2022-11-12] MEDS ORDERED: BABY ASPIRIN 81 MG CHEW PO SCH (10:00)
[2022-11-12] MEDS ORDERED: NON-FORMULARY ITEM (Metoprolol Succinate 25 MG Tab.Er.24h) PO SCH (10:00)
--- NOTE | 2022-11-12 13:31 | PCM.HP ---
History of Present Illness - Chief Complaint Chief Complaint: left fibular fx s/p fall, UTI, hypercalcemia, hyponatremia History of Present Illness: is a [address] Pineda who was brought into the emergency department by EMS and is on hospice for congestive heart failure and chronic weakness and recurrent falls. Patient has a history of HTN,CAD,CHF, Afib. She arrives emergency department with a systolic blood pressure of 109. Patient presents to the emergency department with left ankle pain after fall. She was getting up to use the bathroom when she fell and twisted her left ankle. There is some swelling and bruising in the lateral aspect of the left ankle with mild deformity present. Patient denies chest pain. She denies shortness of breath. Xray Left ankle revealed minimally displaced distal fibula oblique fracture. Patient is admitted to [facility] for treatment of fracture. Card Mounter Dr Escalante consult requested. - Review of Systems All Other Systems: Unable due to condition Medications & Allergies Home Medications: Home Medication List Aspirin 1 tab PO DAILY 02/17/15 [History Confirmed 11/11/22] Furosemide [Lasix] 40 mg PO DAILY 02/17/15 [History Confirmed 11/11/22] Pravastatin Sodium 80 mg PO QHS 02/17/15 [History Confirmed 11/11/22] Acetaminophen/Diphenhydramine [Tylenol Pm Ex-Strength Caplet] 650 mg PO HS PRN 04/21/16 [History Confirmed 11/11/22] Amiodarone HCl 200 mg PO DAILY 11/11/22 [History Confirmed 11/11/22] Apixaban [Eliquis] 2.5 mg PO BID 11/11/22 [History Confirmed 11/11/22] Cholecalciferol (Vitamin D3) [Vitamin D] 1 tablet PO WEEKLY 11/11/22 [History Confirmed 11/11/22] Magnesium Hydroxide 30 ml [Milk of Magnesia 30 ml] 30 ml PO DAILY PRN PRN 11/11/22 [History Confirmed 11/11/22] Metoprolol Succinate 25 mg PO DAILY 11/11/22 [History Confirmed 11/11/22] Allergies/Adverse Reactions: Allergies Allergy/AdvReac Type Severity Reaction Status Date / Time atorvastatin calcium Allergy Unknown Verified 09/16/22 18:48 [From Lipitor] - Past Medical History Past Medical History: Yes Neurological History: No Pertinent History ENT History: Cataracts Cardiac History: High Cholesterol, Hypertension, Myocardial Infarction (NH) Respiratory History: Bronchitis Endocrine Medical History: No Pertinent History Musculoskelatal History: No Pertinent History GI Medical History: Hemorrhoids History: No Pertinent History Pyscho-Social History: No Pertinent History Reproductive Disorders: No Pertinent History - Female History Are you now?: No - Past Surgical History Past Surgical History: Yes Neuro Surgical History: No Pertinent History Cardiac History: Cardiac Catheterization, Cardiac Stent Respiratory Surgery: No Pertinent History GI Surgical History: No Pertinent History Genitourinary Surgical Hx: No Pertinent History Musculskeletal Surgical Hx: No Pertinent History Female Surgical History: Tubal Ligation - Social History Smoking Status: Former smoker How long have you smoked: 30 Exposure to second hand smoke: No Alcohol: None Drug Use: none - Physical Exam Vital Signs: Vital Signs - 24 hr Temp Pulse Resp BP Pulse Ox 11/12/22 12:00 97.2 F 92 H 16 86/50 99 11/12/22 11:22 94 L 11/12/22 08:00 97.1 F 107 H 18 107/63 94 L 11/12/22 04:00 97.1 F 98 H 20 111/62 92 L 11/11/22 23:49 97.5 F 80 18 83/50 96 11/11/22 20:00 97.1 F 113 H 18 95/52 97 11/11/22 18:51 97 11/11/22 16:07 97.9 F 82 18 89/60 93 L 11/11/22 15:48 93 L 11/11/22 15:47 97.9 F 82 16 89/60 93 L 11/11/22 15:09 86 12 82/55 100 11/11/22 14:53 96 11/11/22 14:40 97.4 F 78 20 92/55 98 General Appearance: no apparent distress, lethargy Neurologic Exam: other (wakes to name ,is aware she is in hospital but nods off to sleep) Ears, Nose, Throat Exam: normal ENT inspection Neck Exam: normal inspection Respiratory Exam: diminished breath sounds (bases) Cardiovascular Exam: tachycardia (rate 90) Gastrointestinal/Abdomen Exam: soft (nontender) Skin Exam: warm, dry Results - Labs Lab/Micro Results: Lab Results-Last 24 Hours 11/11/22 11/11/22 11/11/22 Range/Units 13:00 13:02 15:15 WBC (4.0-10.5) x10^3/uL RBC (4.1-5.4) x10^6/uL Hgb (12.0-16.0) g/dL Hct (35-47) % MCV (78-100) fL MCH (26-32) pg MCHC (32-36) g/dL RDW (11.5-14.0) % Plt Count (150-450) x10^3/uL MPV (7.5-11.0) fL Gran % (36.0-66.0) % Immature Gran % (Auto) (0.00-0.4) % Nucleat RBC Rel Count (0.00-0.1) % Eos # (Auto) (0-0.5) x10^3/uL Immature Gran # (Auto) (0.00-0.03) x10^3u/L Absolute Lymphs (auto) (1.0-4.6) x10^3/uL Absolute Monos (auto) (0.0-1.3) x10^3/uL Absolute Nucleated RBC (0.00-0.01) x10^3u/L Lymphocytes % (24.0-44.0) % Monocytes % (0.0-12.0) % Eosinophils % (0.00-5.0) % Basophils % (0.0-0.4) % Absolute Granulocytes (1.4-6.9) x10^3/uL Basophils # (0-0.4) x10^3/uL Sodium 135 L (137-145) mmol/L Potassium 3.9 (3.5-5.1) mmol/L Chloride 97 L (98-107) mmol/L Carbon Dioxide 34 H (22-30) mmol/L Anion Gap 8.5 (5-15) MEQ/L BUN 51 H (7-17) mg/dL Creatinine 4.96 H (0.52-1.04) mg/dL Estimated GFR 8.8 ML/MIN Glucose 112 H (74-106) mg/dL Calcium 15.3 H* (8.4-10.2) mg/dL Total Bilirubin 0.60 (0.2-1.3) mg/dL AST 31 (14-36) U/L ALT 26 (0-35) U/L Alkaline Phosphatase 67 (38-126) U/L NT-Pro-B Natriuret Pep (0-1800) pg/mL Serum Total Protein 7.4 (6.3-8.2) g/dL Albumin 3.0 L (3.5-5.0) g/dL Urine Color Yellow (Yellow) Urine Appearance Cloudy A (Clear) Urine pH 6.5 (4.6-8.0) Ur Specific [place] 1.010 (1.005-1.030) Urine Protein 30 (Negative) Urine Glucose (UA) Negative (Negative) mg/dL Urine Ketones Negative (Negative) Urine Blood Large A (Negative) Urine Nitrite Negative (Negative) Urine Bilirubin Negative (Negative) Urine Urobilinogen 0.2 (0.2) mg/dL Ur Leukocyte Esterase Small A (Negative) U Hyaline Cast (Auto) 3-5 A (0-2) /LPF Urine Microscopic RBC >100 A (0-5) /HPF Urine Microscopic WBC 21-50 A (0-5) /HPF Ur Epithelial Cells Rare (None Seen) /HPF Urine Bacteria Few A (None Seen) /HPF Urine Culture Reflexed ORDERED SEPARATELY (NO) Urine Sodium 43 (30-90) mmol/L Urine Potassium 63.7 mmol/L Influenza Type A Ag (NEGATIVE) Influenza Type B Ag (NEGATIVE) RSV (PCR) (Negative) SARS-CoV-2 (PCR) (NEGATIVE) 11/11/22 11/12/22 11/12/22 Range/Units Unknown 05:21 05:21 WBC 7.7 (4.0-10.5) x10^3/uL RBC 2.91 L (4.1-5.4) x10^6/uL Hgb 9.1 L (12.0-16.0) g/dL Hct 30.4 L (35-47) % MCV 104.5 H (78-100) fL MCH 31.3 (26-32) pg MCHC 29.9 L (32-36) g/dL RDW 14.8 H (11.5-14.0) % Plt Count 155 (150-450) x10^3/uL MPV 11.1 H (7.5-11.0) fL Gran % 77.6 H (36.0-66.0) % Immature Gran % (Auto) 0.7 H (0.00-0.4) % Nucleat RBC Rel Count 0.0 (0.00-0.1) % Eos # (Auto) 0.07 (0-0.5) x10^3/uL Immature Gran # (Auto) 0.05 H (0.00-0.03) x10^3u/L Absolute Lymphs (auto) 0.84 L (1.0-4.6) x10^3/uL Absolute Monos (auto) 0.74 (0.0-1.3) x10^3/uL Absolute Nucleated RBC 0.00 (0.00-0.01) x10^3u/L Lymphocytes % 10.9 L (24.0-44.0) % Monocytes % 9.6 (0.0-12.0) % Eosinophils % 0.9 (0.00-5.0) % Basophils % 0.3 (0.0-0.4) % Absolute Granulocytes 5.96 (1.4-6.9) x10^3/uL Basophils # 0.02 (0-0.4) x10^3/uL Sodium 138 (137-145) mmol/L Potassium 3.8 (3.5-5.1) mmol/L Chloride 99 (98-107) mmol/L Carbon Dioxide 35 H (22-30) mmol/L Anion Gap 8.7 (5-15) MEQ/L BUN 51 H (7-17) mg/dL Creatinine 5.23 H (0.52-1.04) mg/dL Estimated GFR 8.2 ML/MIN Glucose 80 (74-106) mg/dL Calcium 14.7 H* (8.4-10.2) mg/dL Total Bilirubin 0.40 (0.2-1.3) mg/dL AST 25 (14-36) U/L ALT 23 (0-35) U/L Alkaline Phosphatase 60 (38-126) U/L NT-Pro-B Natriuret Pep 11077 H (0-1800) pg/mL Serum Total Protein 6.8 (6.3-8.2) g/dL Albumin 2.8 L (3.5-5.0) g/dL Urine Color (Yellow) Urine Appearance (Clear) Urine pH (4.6-8.0) Ur Specific [place] (1.005-1.030) Urine Protein (Negative) Urine Glucose (UA) (Negative) mg/dL Urine Ketones (Negative) Urine Blood (Negative) Urine Nitrite (Negative) Urine Bilirubin (Negative) Urine Urobilinogen (0.2) mg/dL Ur Leukocyte Esterase (Negative) U Hyaline Cast (Auto) (0-2) /LPF Urine Microscopic RBC (0-5) /HPF Urine Microscopic WBC (0-5) /HPF Ur Epithelial Cells (None Seen) /HPF Urine Bacteria (None Seen) /HPF Urine Culture Reflexed (NO) Urine Sodium (30-90) mmol/L Urine Potassium mmol/L Influenza Type A Ag NEGATIVE (NEGATIVE) Influenza Type B Ag NEGATIVE (NEGATIVE) RSV (PCR) NEGATIVE (Negative) SARS-CoV-2 (PCR) NEGATIVE (NEGATIVE) Microbiology 11/11/22 13:00 Urine Culture - Preliminary Catherized NO GROWTH TO DATE - Radiology Impressions Radiology Exams & Impressions: Radiology Procedures Category Date Time Status LOWER LEG Stat Exams 11/11/22 12:14 Completed - Other Procedures and Tests Respiratory Therapy 11/12/22 11:20 Oxygen Oxymask LPM 3 lpm Assessment/Plan (1) Fall Current Visit: Yes Status: Acute Qualifiers: Encounter type: initial encounter Qualified Code(s): W19.XXXA - Unspecified fall, initial encounter Code(s): W19.XXXA - UNSPECIFIED FALL, INITIAL ENCOUNTER (2) Closed left fibular fracture Current Visit: Yes Status: Acute Code(s): S82.402A - UNSP FRACTURE OF SHAFT OF LEFT FIBULA, INIT FOR CLOS FX (3) CHF (congestive heart failure) Current Visit: Yes Status: Chronic Assessment & Plan: end stage on hospice Code(s): I50.9 - HEART FAILURE, UNSPECIFIED (4) CAD (coronary artery disease) Current Visit: No Status: Chronic Code(s): I25.10 - ATHSCL HEART DISEASE OF [place] CORONARY ARTERY W/O ANG PCTRS (5) CRF (chronic renal failure) Current Visit: Yes Status: Chronic Qualifiers: Chronic kidney disease stage: stage 5 Qualified Code(s): N18.5 - Chronic kidney disease, stage 5
[2022-11-12] MEDS: Toprol-Xl 25MG Tablets PO SCH (15:14)
[2022-11-12] MEDS: ECOTRIN 81 MG PO SCH (15:15)
[2022-11-12] MEDS: Lasix 40 MG PO SCH (15:16)
[2022-11-12] MEDS: BENADRYL 25 MG CAPSULE PO SCH (21:49)
[2022-11-12] MEDS: TYLENOL 325 MG PO SCH (21:49)
[2022-11-12] MEDS: ZOCOR 20MG PO SCH (21:49)
[2022-11-12] MEDS ORDERED: NON-FORMULARY ITEM (Pravastatin Sodium [Pravastatin Sodium] 20 MG Tablet) PO SCH (22:00)
[2022-11-13] MEDS: MORPHINE SULFATE 2 MG INJ IV PRN ×2 (04:22→22:38)
[2022-11-13] MEDS: Sodium Chloride 0.9% 1000 ML 1,000 ML IV SCH (08:57)
[2022-11-13] MEDS: ROCEPHIN 1 Gm-D5w 50 ml Bag** 1 G/50 ML IVPB IV SCH (09:40)
[2022-11-13] MEDS: ECOTRIN 81 MG PO SCH (09:40)
[2022-11-13] MEDS: Lasix 40 MG PO SCH (09:40)
[2022-11-13] MEDS: ELIQUIS 2.5 MG TABLET PO SCH ×2 (09:40→23:56)
[2022-11-13] MEDS: Cordarone 200 MG PO SCH (09:40)
[2022-11-13] MEDS: Toprol-Xl 25MG Tablets PO SCH (09:41)
--- NOTE | 2022-11-13 15:35 | PCM.CONS ---
Podiatry HPI - Consult Date of Consultation Date: 11/13/22 Reason for Consult: Left bimalleolar fracture equivalent Consulting Provider: BUD TIAN DPM - [facility] History of Present Illness: Jeannie is a very pleasant 87-year-old female seen at bedside today. Patient sustained a fall and subsequent pain to the left ankle on the patient indicates she was getting up to use the restroom fell and twisted her left ankle. X-rays were taken demonstrating a minimally displaced distal fibular supination external rotation fracture with significant medial clear space widening. Patient does have a positive history of hypertension coronary artery disease atrial fibrillation and congestive heart failure. Patient has also been subsequently diagnosed with UTI and end-stage renal disease. She is a hospice patient. Patient examination limited secondary to condition Medications & Allergies Home Medications: Home Medication List Aspirin 1 tab PO DAILY 02/17/15 [History Confirmed 11/11/22] Furosemide [Lasix] 40 mg PO DAILY 02/17/15 [History Confirmed 11/11/22] Pravastatin Sodium 80 mg PO QHS 02/17/15 [History Confirmed 11/11/22] Acetaminophen/Diphenhydramine [Tylenol Pm Ex-Strength Caplet] 650 mg PO HS PRN 04/21/16 [History Confirmed 11/11/22] Amiodarone HCl 200 mg PO DAILY 11/11/22 [History Confirmed 11/11/22] Apixaban [Eliquis] 2.5 mg PO BID 11/11/22 [History Confirmed 11/11/22] Cholecalciferol (Vitamin D3) [Vitamin D] 1 tablet PO WEEKLY 11/11/22 [History Confirmed 11/11/22] Magnesium Hydroxide 30 ml [Milk of Magnesia 30 ml] 30 ml PO DAILY PRN PRN 11/11/22 [History Confirmed 11/11/22] Metoprolol Succinate 25 mg PO DAILY 11/11/22 [History Confirmed 11/11/22] Allergies/Adverse Reactions: Allergies Allergy/AdvReac Type Severity Reaction Status Date / Time atorvastatin calcium Allergy Unknown Verified 09/16/22 18:48 [From Lipitor] - Past Medical History Past Medical History: Yes Neurological History: No Pertinent History ENT History: Cataracts Cardiac History: High Cholesterol, Hypertension, Myocardial Infarction ([place]) Respiratory History: Bronchitis Endocrine Medical History: No Pertinent History Musculoskelatal History: No Pertinent History GI Medical History: Hemorrhoids History: No Pertinent History Pyscho-Social History: No Pertinent History Reproductive Disorders: No Pertinent History - Female History Are you now?: No - Past Surgical History Past Surgical History: Yes Neuro Surgical History: No Pertinent History Cardiac History: Cardiac Catheterization, Cardiac Stent Respiratory Surgery: No Pertinent History GI Surgical History: No Pertinent History Genitourinary Surgical Hx: No Pertinent History Musculskeletal Surgical Hx: No Pertinent History Female Surgical History: Tubal Ligation - Social History Smoking Status: Former smoker How long have you smoked: 30 Exposure to second hand smoke: No Alcohol: None Drug Use: none Physical Exam - Vascular Peripheral Pulses: Posterior tibialis: 2+, Dorsalis-Pedis: 2+ Capillary Refill Time: < 3 seconds Hair Growth: Symmetrical and Bilateral Varicosities: Negtive Edema: None Skin Temperature: Warm to touch (Bimalleolar fracture equivalent left ankle. No obvious gross deformity.) - Narrative Narrative Physical Exam: Podiatry Physical Exam Results - Labs Lab/Micro Results: Lab Results-Last 24 Hours 11/11/22 Range/Units 15:15 PTH Intact Whole Molec 6 L (15-65) pg/mL Urine Osmolality Pending Ur Calcium mg/dL Pending Microbiology 11/11/22 13:00 Urine Culture - Final Catherized <10K NORMAL SKIN FERNANDO PROBABLE SKIN CONTAMINANT - Other Procedures and Tests Respiratory Therapy 11/13/22 15:15 EKG ROUTINE Assessment/Plan (1) Closed bimalleolar fracture of left ankle Current Visit: Yes Status: Acute Assessment & Plan: Initial patient examination evaluation. Radiographs reviewed and discussed with patient as well as power of employment law attorney who is son Arnoldo Lombardo. Patient has suffered an unstable fracture consistent with minimally displaced fibular fracture however significant widening of the medial clear space to approximately 1 cm. Patient is largely ambulatory at this time however complicated medically. Discussion with patient's son who is her power of employment law attorney states he would like to proceed to keep her ambulatory at this time all risks complications and benefits of surgical intervention were discussed with him and likelihood of complicated outcomes. Cardiology consult for cardiac clearance Anesthesia consult for preoperative assessment Procedure planned: Mini open/ Minimally invasive open reduction internal fixation left ankle bimalleolar ankle fracture with syndemostic reduction. Patient and POA (son) understands all risks complications and benefits of surgical intervention including but not limited to infection, hematoma, seroma, possible delayed healing of skin, non healing of skin, delayed healing of bone, non-union, possibility of pain irritating hardware and need for further surgical intervention at a later date. Patient and POA (son) is aware that surgery is not a guarantee of success for eliminating the patients pain and possible other issues may arise as a result. This may require the need for further surgical intervention at a later date. Plenty of time was allowed for questions to be asked, which were answered, to the patient and Son's apparent satisfaction. The process of decision making was discussed in depth with the patient and which procedures are to be preformed and why. We will proceed with surgical intervention once all preoperative criteria has been met: PCP: Lisset Vaughan. Already obtained History & Physical as well as risk stratification. Spindle Setter: Fredi- will assess this evening General vs popliteal + saphenous block. Appreciate recommendations. Score Caller: none Advance imaging: unneccessary Preoperative assessment: ERAS protocol. Post op plan: Weight bearing: NWB left lower extremity Assistive device: Wheel chair Antibiotic intraoperative: Ancef 2 g Antibiotic postoperative: Keflex 500 mg TID DVT prophylaxis: Cardiology to manage given patients Afib. Will continue current regimen (if permitted) due to minimally open/ minimally invasive approach planned with intramedulary fibular nail and syndemostic reduction Will follow up with patient postoperatively and monitor closely. Pain control as prescribed. Ok for d/c following operation if cleared from PCP standpoint. will follow with you until then. Thank you for the consult. Code(s): S82.842A - DISPLACED BIMALLEOLAR FRACTURE OF LEFT LOWER LEG, INIT (2) Closed left fibular fracture Current Visit: Yes Status: Acute Code(s): S82.402A - UNSP FRACTURE OF SHAFT OF LEFT FIBULA, INIT FOR CLOS FX (3) Fall Current Visit: Yes Status: Acute Qualifiers: Encounter type: initial encounter Qualified Code(s): W19.XXXA - Unspecified fall, initial encounter Code(s): W19.XXXA - UNSPECIFIED FALL, INITIAL ENCOUNTER (4) UTI (urinary tract infection) Current Visit: Yes Status: Acute Code(s): N39.0 - URINARY TRACT INFECTION, SITE NOT SPECIFIED (5) CHF (congestive heart failure) Current Visit: Yes Status: Chronic Code(s): I50.9 - HEART FAILURE, UNSPECIFIED (6) CRF (chronic renal failure) Current Visit: Yes Status: Chronic Qualifiers: Chronic kidney disease stage: stage 5 Qualified Code(s): N18.5 - Chronic kidney disease, stage 5 (7) AJ (acute kidney injury) Current Visit: No Status: Acute Code(s): N17.9 - ACUTE KIDNEY FAILURE, UNSPECIFIED (8) Atrial fibrillation with RVR Current Visit: No Status: Acute Code(s): I48.91 - UNSPECIFIED ATRIAL FIBRILLATION (9) CHF exacerbation Current Visit: No Status: Acute Code(s): I50.9 - HEART FAILURE, UNSPECIFIED (10) CAD (coronary artery disease) Current Visit: No Status: Chronic Code(s): I25.10 - ATHSCL HEART DISEASE OF [place] CORONARY ARTERY W/O ANG PCTRS (11) HTN (hypertension) Current Visit: No Status: Chronic Code(s): I10 - ESSENTIAL (PRIMARY) HYPERTENSION
[2022-11-13] MEDS: ZOCOR 20MG PO SCH (22:38)
[2022-11-13] MEDS: BENADRYL 25 MG CAPSULE PO SCH (22:38)
[2022-11-13] MEDS: TYLENOL 325 MG PO SCH (22:38)
[2022-11-14] MEDS: Sodium Chloride 0.9% 1000 ML 1,000 ML IV SCH ×2 (07:27→09:07)
[2022-11-14] MEDS: ECOTRIN 81 MG PO SCH (08:31)
[2022-11-14] MEDS: Cordarone 200 MG PO SCH (08:56)
[2022-11-14] MEDS: Lasix 40 MG PO SCH (08:56)
[2022-11-14] MEDS: Toprol-Xl 25MG Tablets PO SCH ×2 (08:56→21:01)
--- NOTE | 2022-11-14 09:02 | XRAY ---
Indication: Preop exam. Comparison: September 16, 2022 Portable chest demonstrates new lingula infiltrate versus atelectasis. Remaining heart and lungs unremarkable again with incidental left apical calcified granuloma. Bony thorax intact again with osteopenia, mild degenerative changes, and mild dextroscoliosis.
[2022-11-14] MEDS: ROCEPHIN 1 Gm-D5w 50 ml Bag** 1 G/50 ML IVPB IV SCH (09:07)
[2022-11-14 09:11] LABS: Absolute Neutrophil Ct (ANC) 10.54 x10^3/uL (1.4-6.9); BASOPHIL % 0.2 % (0.0-0.4); Basophil (Absolute #) 0.02 x10^3/uL (0-0.4); Eosinophil % 0.3 % (0.00-5.0); Eosinophil (Absolute #) 0.04 x10^3/uL (0-0.5); Hematocrit 28.9 % (35-47); Hemoglobin 9.1 g/dL (12.0-16.0); IMMATURE GRAN # 0.09 x10^3u/L (0.00-0.03); IMMATURE GRAN % 0.7 % (0.00-0.4); Lymphocytes % 6.5 % (24.0-44.0); Mean Cell Volume 102.8 fL (78-100); Mean Corpuscular Hemoglobin 32.4 pg (26-32); Mean Corpuscular Hgb Concent. 31.5 g/dL (32-36); Mean Platelet Volume 11.1 fL (7.5-11.0); Monocyte (Absolute #) 0.87 x10^3/uL (0.0-1.3); Neutrophil % 85.3 % (36.0-66.0); Platelet Count 151 x10^3/uL (150-450); Red Blood Count 2.81 x10^6/uL (4.1-5.4); Red Cell Distribution Width 14.4 % (11.5-14.0); White Blood Count 12.4 x10^3/uL (4.0-10.5)
[2022-11-14 09:29] LABS: ALBUMIN 2.5 g/dL (3.5-5.0); BILIRUBIN,TOTAL 0.4 mg/dL (0.2-1.3); Creatinine 1 5.44 mg/dL (0.52-1.04); EST GLOMERULAR FILTRATION RATE 7.9 ML/MIN; Potassium 3.9 mmol/L (3.5-5.1); Total Protein 6.5 g/dL (6.3-8.2)
[2022-11-14 09:32] LABS: Calcium 12.7 mg/dL (8.4-10.2); INR 1.41 (0.8-3.0); PROTIME 14.5 SECONDS (9.4-12.5); PTT 48.5 SECONDS (25.1-36.5)
--- NOTE | 2022-11-14 10:13 | CONS ---
CONSULT DATE: 11/13/2022 BRIEF HISTORY: This is an 87-year-old female with known history of coronary artery disease status post previous coronary stenting, who was seen for preoperative cardiac evaluation. The patient apparently fell and sustained a fracture to the left fibula. The patient is unable to give any meaningful historical information as she gets intermittently confused. She is known to have coronary artery disease having had previous coronary stenting. She also has atrial fibrillation and is currently anticoagulated. Significant medical history included history of myocardial infarction and stage 5 renal failure. CURRENT MEDICATIONS: Acetaminophen, amiodarone 200 mg a day, apixaban 2.5 mg twice a day, aspirin 81 mg a day, Benadryl 25 mg at night time, furosemide 40 mg a day, metoprolol 25 mg daily, simvastatin 40 mg at bedtime, Rocephin. PHYSICAL EXAMINATION: Blood pressure 110/66 with heart rate of 90, respirations about 14. GENERAL: The patient is an elderly female who is awake but somewhat confused. HEENT: Slightly pale conjunctivae. NECK: No obvious JVD. CHEST: The breath sounds are diminished with no crackles. CARDIAC: Heart tones are variable. The rhythm is regular. There is a grade 2/6 mid systolic murmur. ABDOMEN: Soft with normal bowel sounds. EXTREMITIES: Left lower extremity immobilized. LAB DATA AND DIAGNOSTIC TESTS: Electrocardiogram done on 11/13/2022 showed atrial fibrillation, changes of an old inferior myocardial infarction. The BUN is 51, creatinine 5.23 with GFR of 8.2. Serum electrolytes are within normal. Calcium 14.7. ProBNP 14,400. CBC shows the hemoglobin 9.1, PLT count 155,000. ASSESSMENT AND PLAN: The patient is known to have coronary artery disease, status post coronary stenting. The patient does not complain of any chest pains. Due to her multiple comorbidity factors, she would be of high risk for any surgical procedure. Will increase the beta blockers and reduce the amiodarone.
[2022-11-14] MEDS ORDERED: Decadron 4 MG INJ ONE (11:10)
[2022-11-14] MEDS ORDERED: DEXMEDETOMIDINE 80 MCG/20ML-NS IV ONE (11:10)
[2022-11-14] MEDS ORDERED: Naropin 0.5% 30 ML VIAL ONE (11:10)
[2022-11-14] MEDS ORDERED: Epinephrine Preservative Free 1 MG/ML ONE (11:18)
[2022-11-14] MEDS ORDERED: Sodium Chloride 0.9% 500 ML 500 ML IV ONE (11:33)
[2022-11-14] MEDS ORDERED: PHENYLEPHRINE HCL 10 MG in Dextrose 5%/Water IV Soln. 250 ML 250 ML IV PRN (11:39)
[2022-11-14 12:23] LABS: ABO TYPING B; Antibody Screen NEGATIVE (NEGATIVE); RH TYPING POSITIVE
[2022-11-14 12:25] LABS: CROSS MATCH (PRBC) COMPATIBLE (COMPATIBLE)
--- NOTE | 2022-11-14 14:57 | XRAY ---
Indication: ORIF left ankle. Intraoperative fluoroscopy provided for 4 minutes 7 seconds. 19 digital spot images submitted for interpretation ultimately demonstrates ORIF surgery distal fibula fracture. Apposition/alignment is near anatomic. Transverse tunneling distal tibia/fibula with medial/lateral orthopedic buttons. Correlate with degenerative findings/report.
--- NOTE | 2022-11-14 17:15 | XRAY ---
Four minutes and 7 seconds of fluoroscopy was used in surgery for a ORIF left ankle.
--- NOTE | 2022-11-14 19:08 | PCM.NOTE ---
Date and Time: 11/14/221906 Subjective Assessment: Patient tolerated proceedure in surgery today for left ankle bimalleolar fracture. Good pain control. VSS. Is asking for a cup of coffee. Objective Exam General Appearance: no apparent distress Neurologic Exam: alert, confusion (oriented to person) Skin Exam: warm, dry Respiratory Exam: diminished breath sounds (bases), other (on O2 3L/NC) Cardiovascular Exam: irregular (rate 90s) Extremity Exam: other (post op dressing clean and dry ,toes warm) OBJECTIVE DATA Vital Signs: Vital Signs - 24 hr Temp Pulse Resp BP Pulse Ox 11/14/22 18:05 96 11/14/22 16:00 97.5 F 93 H 15 90/52 95 11/14/22 15:53 95 11/14/22 11:10 96.9 F 107 H 15 91/59 94 L 11/14/22 08:18 97.1 F 118 H 14 108/62 95 11/14/22 07:50 97.1 F 118 H 14 108/62 95 11/14/22 04:00 97.5 F 107 H 17 80/43 96 11/13/22 23:10 97.1 F 128 H 16 110/70 98 11/13/22 19:26 98.1 F 136 H 16 104/48 97 Pain Assessment - Last Documented Pain Intensity 7 Pain [facility] Intake and Output: Intake & Output 11/12/22 11/13/22 11/14/22 11/15/22 11:59 11:59 11:59 11:59 Intake Total 700 1194 1284 120 Output Total 350 375 800 400 Balance 350 819 484 -280 Weight 71.6 kg 71.6 kg 71.5 kg Lab Results: Lab Results-Last 24 Hours 11/11/22 11/14/22 11/14/22 Range/Units 15:15 09:04 09:04 WBC 12.4 H (4.0-10.5) x10^3/uL RBC 2.81 L (4.1-5.4) x10^6/uL Hgb 9.1 L (12.0-16.0) g/dL Hct 28.9 L (35-47) % MCV 102.8 H (78-100) fL MCH 32.4 H (26-32) pg MCHC 31.5 L (32-36) g/dL RDW 14.4 H (11.5-14.0) % Plt Count 151 (150-450) x10^3/uL MPV 11.1 H (7.5-11.0) fL Gran % 85.3 H (36.0-66.0) % Immature Gran % (Auto) 0.7 H (0.00-0.4) % Nucleat RBC Rel Count 0.0 (0.00-0.1) % Eos # (Auto) 0.04 (0-0.5) x10^3/uL Immature Gran # (Auto) 0.09 H (0.00-0.03) x10^3u/L Absolute Lymphs (auto) 0.80 L (1.0-4.6) x10^3/uL Absolute Monos (auto) 0.87 (0.0-1.3) x10^3/uL Absolute Nucleated RBC 0.00 (0.00-0.01) x10^3u/L Lymphocytes % 6.5 L (24.0-44.0) % Monocytes % 7.0 (0.0-12.0) % Eosinophils % 0.3 (0.00-5.0) % Basophils % 0.2 (0.0-0.4) % Absolute Granulocytes 10.54 H (1.4-6.9) x10^3/uL Basophils # 0.02 (0-0.4) x10^3/uL PT (9.4-12.5) SECONDS INR (0.8-3.0) APTT (25.1-36.5) SECONDS Sodium 137 (137-145) mmol/L Potassium 3.9 (3.5-5.1) mmol/L Chloride 100 (98-107) mmol/L Carbon Dioxide 29 (22-30) mmol/L Anion Gap 12.0 (5-15) MEQ/L BUN 64 H (7-17) mg/dL Creatinine 5.44 H (0.52-1.04) mg/dL Estimated GFR 7.9 ML/MIN Glucose 72 L (74-106) mg/dL Calcium 12.7 H* (8.4-10.2) mg/dL Total Bilirubin 0.40 (0.2-1.3) mg/dL AST 20 (14-36) U/L ALT 19 (0-35) U/L Alkaline Phosphatase 70 (38-126) U/L Serum Total Protein 6.5 (6.3-8.2) g/dL Albumin 2.5 L (3.5-5.0) g/dL Urine Osmolality 324 (.) mOsmol/kg ABO Group Rh Factor Antibody Screen (NEGATIVE) Crossmatch (COMPATIBLE) 11/14/22 11/14/22 11/14/22 Range/Units 09:04 11:10 11:10 WBC (4.0-10.5) x10^3/uL RBC (4.1-5.4) x10^6/uL Hgb (12.0-16.0) g/dL Hct (35-47) % MCV (78-100) fL MCH (26-32) pg MCHC (32-36) g/dL RDW (11.5-14.0) % Plt Count (150-450) x10^3/uL MPV (7.5-11.0) fL Gran % (36.0-66.0) % Immature Gran % (Auto) (0.00-0.4) % Nucleat RBC Rel Count (0.00-0.1) % Eos # (Auto) (0-0.5) x10^3/uL Immature Gran # (Auto) (0.00-0.03) x10^3u/L Absolute Lymphs (auto) (1.0-4.6) x10^3/uL Absolute Monos (auto) (0.0-1.3) x10^3/uL Absolute Nucleated RBC (0.00-0.01) x10^3u/L Lymphocytes % (24.0-44.0) % Monocytes % (0.0-12.0) % Eosinophils % (0.00-5.0) % Basophils % (0.0-0.4) % Absolute Granulocytes (1.4-6.9) x10^3/uL Basophils # (0-0.4) x10^3/uL PT 14.5 H (9.4-12.5) SECONDS INR 1.41 (0.8-3.0) APTT 48.5 H (25.1-36.5) SECONDS Sodium (137-145) mmol/L Potassium (3.5-5.1) mmol/L Chloride (98-107) mmol/L Carbon Dioxide (22-30) mmol/L Anion Gap (5-15) MEQ/L BUN (7-17) mg/dL Creatinine (0.52-1.04) mg/dL Estimated GFR ML/MIN Glucose (74-106) mg/dL Calcium (8.4-10.2) mg/dL Total Bilirubin (0.2-1.3) mg/dL AST (14-36) U/L ALT (0-35) U/L Alkaline Phosphatase (38-126) U/L Serum Total Protein (6.3-8.2) g/dL Albumin (3.5-5.0) g/dL Urine Osmolality (.) mOsmol/kg ABO Group B Rh Factor POSITIVE Antibody Screen NEGATIVE (NEGATIVE) Crossmatch COMPATIBLE COMPATIBLE (COMPATIBLE) Radiology Exams: Radiology Procedures Category Date Time Status ANKLE (3 VIEWS) Routine Exams 11/14/22 08:19 Completed FLUOROSCOPY UP TO 1 HR Routine Exams 11/14/22 08:20 Completed Portable Chest [CHEST 1 VIEW (PORTABLE)] Stat Exams 11/14/22 08:36 Completed Multi-Disciplinary Progress Notes: Multi-Disciplinary Progress Notes 11/14/22 13:07 Case Management Note by Stacy Torres S/W [facility]- THEY ARE OUT OF NETWORK SON NOTIFIED- HE WOULD LIKE PATIENT TO STAY CLOSE TO [facility]. HE WAS NOTIFIED THAT [facility] IS IN NETWORK- HE WOULD LIKE REFERRAL FAXED THERE. REFERRAL FAXED TO [facility] AT THIS TIME Initialized on 11/14/22 13:07 - END OF NOTE 11/14/22 11:10 Case Management Note by Stacy Torres SON CONTINUES TO HOPE FOR A REHAB STAY AT [facility]. WILL SEND REFERRAL POST OP WHEN STABLE Initialized on 11/14/22 11:10 - END OF NOTE Assessment/Plan (1) Fall Status: Acute Qualifiers: Encounter type: initial encounter Qualified Code(s): W19.XXXA - Unspecified fall, initial encounter Code(s): W19.XXXA - UNSPECIFIED FALL, INITIAL ENCOUNTER (2) Closed left fibular fracture Status: Acute Code(s): S82.402A - UNSP FRACTURE OF SHAFT OF LEFT FIBULA, INIT FOR CLOS FX (3) CHF (congestive heart failure) Status: Chronic Code(s): I50.9 - HEART FAILURE, UNSPECIFIED (4) CAD (coronary artery disease) Status: Chronic Assessment & Plan: see todays Podiatry proceedure note Code(s): I25.10 - ATHSCL HEART DISEASE OF [place] CORONARY ARTERY W/O ANG PCTRS (5) CRF (chronic renal failure) Status: Chronic Qualifiers: Chronic kidney disease stage: stage 5 Qualified Code(s): N18.5 - Chronic kidney disease, stage 5 Assessment & Plan: Hospice,no dialysis
[2022-11-14] MEDS: BENADRYL 25 MG CAPSULE PO SCH (19:38)
[2022-11-14] MEDS: TYLENOL 325 MG PO SCH (21:01)
[2022-11-14] MEDS: ZOCOR 20MG PO SCH (21:02)
[2022-11-14 23:15] LABS: Calcium, Urine 24.7 mg/dL (Not Estab.)
--- NOTE | 2022-11-15 08:50 | OP ---
SURGERY DATE/TIME: 11/14/2022 1332 PREOPERATIVE DIAGNOSES: 1) Left bimalleolar fracture equivalent. 2) Syndesmotic disruption. 3) Left ankle pain. POSTOPERATIVE DIAGNOSES: 1) Left bimalleolar fracture equivalent. 2) Syndesmotic disruption. 3) Left ankle pain. PROCEDURES: 1) Open reduction internal fixation left ankle. 2) Syndesmotic reduction. SURGEON: Boris Hannah DPM. DIAMOND DIE DRILLER: None. ANESTHESIA: Popliteal and abductor canal block. See anesthesia report for details. HEMOSTASIS: Pressure dressing. ESTIMATED BLOOD LOSS: Less than 10 cc. MATERIALS: Flex thread fibular nail size 4.5 x 130. One - 2.7 x 12, one - 2.7 x 14 and one - 2.7 x 10 along with one Constrictor Rope for syndesmotic stabilization, 4-0 Monocryl and 3-0 Nylon. INJECTABLES: See anesthesia report for details. INDICATION FOR SURGERY: Jeannie is a very pleasant 87-year-old female with a very complicated medical history consisting of being on Hospice for end-stage renal disease. The patient is ambulatory however the patient did suffer an ankle fracture as a result of standing up and falling on her way to the restroom on 11/11/2022. The patient was admitted. Due to the fact that the patient is a complicated patient, discussion was had with the patient's Power of Medical Records Custodian in regards to independence and to what degree palliative care meant to the family as well as the patient. At this time remaining performance status for ambulation was of importance to the family. Discussion was had in regards to the risks, complications and benefits of undergoing surgical intervention. Cardiac clearance was obtained through Dr. Dorsey who indicated that general anesthesia was not indicated due to the risk that this patient held in this circumstance. Discussion with the anesthesia team at that time it was determined that a regional block would be appropriate for this patient in order to allow for her to regain her independence in weight-bearing in short order quickly after the procedure was performed. The patient and patients Power of Medical Records Custodian understand all risks, benefits and complications of surgical intervention at this time including but not limited to infection, hematoma, seroma, possibility of delayed bone healing, nonbone healing, possibility of need for repeat surgical intervention which in this case is not advisable. The possibility of painful hardware is a very low possibility and the need for retrieval is lower likelihood given these circumstances. All of this was understood by the patient's Power of Medical Records Custodian and he wishes for us to proceed. DESCRIPTION OF PROCEDURE AND FINDINGS: The patient is brought into the OR following a popliteal and abductor canal block. The left lower extremity was prepped and draped in the typical sterile fashion and lowered onto the surgical field at this time. At this time, a small incision was made under fluoroscopic guidance checking on the lateral, the AP and mortise views to assess where the fracture was identified this was identified. A small 2 cm incision was made and carried down to the level of the fracture site. The fracture site was cleansed of any hematoma and a [id number] forceps and a lobster claw were utilized to maintain compression through the fracture site with minimal displacement this was checked on multiple views and deemed to be adequate for the circumstances. At this time a 130 mm 4.5 Flex-Thread fibular nail was introduced from the distal fibula gaining entry at an appropriate point and gaining compression through the surgical site. At this time, distal locking screws were introduced until the fragment was secured. Syndesmosis was stressed and deemed to be out at this time. A Constrictor rope was then introduced from the lateral aspect of the fibula at a 30 degree angle in an anterior to posterior orientation. This was checked under multiple fluoroscopic sites and deemed to be in an adequate position. Following this, copious amounts of sterile saline were utilized to flush the surgical site. 4-0 Monocryl was utilized to coapt the subcutaneous skin and 3-0 Nylon was utilized in a horizontal mattress-type fashion to coapt the skin at the lateral aspect of the wound, the puncture site for the fibular and the site for the syndesmotic Constrictor rope. Copious amounts of sterile saline were utilized to flush the skin and dried. A dressing consisting of Betadine, Adaptic, 4x4, Kerlix and a well-padded posterior splint was then applied to the patient's left lower extremity with the foot orthogonal relative to longitudinal aspect of the leg. The patient then was returned to the postoperative anesthesia care unit with vital signs stable and vascular status intact. The patient handled the anesthesia as well as the procedure without significant complication. Postoperative orders as indicated in the patient's discharge chart.
[2022-11-15] MEDS ORDERED: Sodium Chloride 0.9% 500 ML 500 ML IV ONE (09:36)
[2022-11-15] MEDS ORDERED: Lasix 20 MG/2 ML IV PRN (10:00)
[2022-11-15] MEDS: Cordarone 200 MG PO SCH (10:50)
[2022-11-15] MEDS: ECOTRIN 81 MG PO SCH (10:50)
[2022-11-15] MEDS: Lasix 40 MG PO SCH (10:50)
[2022-11-15] MEDS: Toprol-Xl 25MG Tablets PO SCH (10:51)
[2022-11-15] MEDS: DILAUDID 1 MG/1ML PCA SYRINGE IV PRN ×2 (11:00→21:43)
[2022-11-15] MEDS: ROCEPHIN 1 Gm-D5w 50 ml Bag** 1 G/50 ML IVPB IV SCH (11:18)
[2022-11-15] MEDS: Sodium Chloride 0.9% 1000 ML 1,000 ML IV SCH (13:19)
[2022-11-15 20:12] VITALS: BP 49/22; PULSE 119; O2SAT 100
[2022-11-16 02:43] LABS: 027 TOX PROD PRESUMPTIVE NEGATIVE (NEGATIVE)
[2022-11-16 02:49] LABS: TOXIGENIC C. DIFF ORG POSITIVE (NEGATIVE)
--- NOTE | 2022-12-12 13:18 | PCM.DS ---
Discharge Summary Date of Admission: 11/11/22 15:35 Date of Discharge: 11/15/2022 Admitting Physician: BRIAN ARIAS DO Consults: Consults on Case 11/11/22 15:48 Consult Podiatry ROUTINE 11/13/22 13:00 Consult Cardiology ROUTINE Primary Care Provider: CORKY DUGGAN Allergies Allergies atorvastatin calcium [From Lipitor] Allergy (Unknown, Verified 09/16/22 18:48) hands became swollen and itched Hospital Summary - Hospital Course Hospital Course: Pt admitted and underwent surgical repair of fracture, unfortunately this hospice patient, became fluid overloaded c/w CHF exacerbated by her acute on chronic renal failure and failed to respond to diuresis and prior decision to not want aggressive intervention, succumbed to the process. - Vitals & Intake/Output Vital Signs: Vital Signs Temperature 96.9 F 11/15/22 19:00 Pulse Rate 119 H 11/15/22 19:00 Respiratory Rate 30 H 11/15/22 19:00 Blood Pressure 49/22 11/15/22 19:00 O2 Sat by Pulse Oximetry 100 11/15/22 19:00 - Lab Result Diagrams: 11/14/22 09:04 11/14/22 09:04 Micro Results-Entire Visit: Microbiology 11/11/22 13:00 Urine Culture - Final Catherized <10K NORMAL SKIN FERNANDO PROBABLE SKIN CONTAMINANT - Procedures and Test Procedures and Tests throughout Hospitalization: Therapy Orders & Screens 11/12/22 11:20 Oxygen Oxymask LPM 3 lpm Comment: Diagnosis: left fibular fx s/p fall, UTI, hypercalcemia, hyponatremia 11/13/22 15:15 EKG ROUTINE Comment: Diagnosis: left fibular fx s/p fall, UTI, hypercalcemia, hyponatremia Discharge Exam General Appearance: lethargy Eye Exam: eyes nml inspection Ears, Nose, Throat Exam: normal ENT inspection, pharynx normal, moist mucous membranes Neck Exam: normal inspection, non-tender, supple Respiratory Exam: crackles/rales Cardiovascular Exam: irregular Gastrointestinal/Abdomen Exam: soft Pelvic Exam: deferred Rectal Exam: deferred Extremity Exam: normal inspection Final Diagnosis/Problem List - Final Discharge Diagnosis/Problem (1) AJ (acute kidney injury) Status: Acute Code(s): N17.9 - ACUTE KIDNEY FAILURE, UNSPECIFIED (2) Atrial fibrillation with RVR Status: Acute Code(s): I48.91 - UNSPECIFIED ATRIAL FIBRILLATION (3) CHF exacerbation Status: Acute Code(s): I50.9 - HEART FAILURE, UNSPECIFIED (4) Closed bimalleolar fracture of left ankle Status: Acute Code(s): S82.842A - DISPLACED BIMALLEOLAR FRACTURE OF LEFT LOWER LEG, INIT (5) Closed left fibular fracture Status: Acute Code(s): S82.402A - UNSP FRACTURE OF SHAFT OF LEFT FIBULA, INIT FOR CLOS FX (6) Fall Status: Acute Code(s): W19.XXXA - UNSPECIFIED FALL, INITIAL ENCOUNTER (7) CAD (coronary artery disease) Status: Chronic Code(s): I25.10 - ATHSCL HEART DISEASE OF [place] CORONARY ARTERY W/O ANG PCTRS (8) CHF (congestive heart failure) Status: Chronic Code(s): I50.9 - HEART FAILURE, UNSPECIFIED (9) CRF (chronic renal failure) Status: Chronic (10) HTN (hypertension) Status: Chronic Code(s): I10 - ESSENTIAL (PRIMARY) HYPERTENSION - Discharge Discharge Date: 11/15/22 Disposition: Condition: Prescriptions: No Action Furosemide [Lasix] 40 mg PO DAILY Aspirin 1 tab PO DAILY Pravastatin Sodium 80 mg PO QHS Acetaminophen/Diphenhydramine [Tylenol Pm Ex-Strength Caplet] 650 mg PO HS PRN PRN Reason: sleep Apixaban [Eliquis] 2.5 mg PO BID Metoprolol Succinate 25 mg PO DAILY Magnesium Hydroxide 30 ml [Milk of Magnesia 30 ml] 30 ml PO DAILY PRN PRN PRN Reason: Constipation Cholecalciferol (Vitamin D3) [Vitamin D] 1 tablet PO WEEKLY Amiodarone HCl 200 mg PO DAILY Follow up with: BUD TIAN DPM [ACTIVE STAFF] - 1 Week CORKY DUGGAN [Primary Care Provider] -
== END 2022-11-15 21:02 | disposition expired | DRG 982 ==
LOC: ED 12:03 → MED SURG 15:35 → OBSVTOIN 15:35
PROVIDERS: ADMIT Family Medicine; ATTEND Family Medicine
PROC: 0QSK04Z Reposition Left Fibula with Internal Fixation Device, Open Approach (ICD-10-PCS; principal; 2022-11-14)
DX: I13.2 Hypertensive heart and chronic kidney disease with heart failure and with stage 5 chronic kidney disease, or end stage renal disease (principal); E87.1 Hypo-osmolality and hyponatremia; N18.5 Chronic kidney disease, stage 5; N39.0 Urinary tract infection, site not specified; I50.9 Heart failure, unspecified; I48.91 Unspecified atrial fibrillation; W19.XXXA Unspecified fall, initial encounter; S82.402A Unspecified fracture of shaft of left fibula, initial encounter for closed fracture; S82.842A Displaced bimalleolar fracture of left lower leg, initial encounter for closed fracture; I25.10 Atherosclerotic heart disease of native coronary artery without angina pectoris; S93.05XA Dislocation of left ankle joint, initial encounter; M25.572 Pain in left ankle and joints of left foot; Z79.01 Long term (current) use of anticoagulants; Z20.828 Contact with and (suspected) exposure to other viral communicable diseases; Z79.899 Other long term (current) drug therapy
CPT/HCPCS: 01480; 0241U; 27814; 27829; 36000; 36415; 36620; 51702; 64447; 64450; 71045; 73590; 73610; 76000; 76942; 80053; 81001; 82340; 83880; 83935; 83970; 84133; 84300; 85025; 85610; 85730; 86850; 86900; 86901; 86922; 87086; 87493; 93005; 94760; 94762; 96365; 96374; 96375; 99100; 99140; 99223; 99284; 76937; 80048; 84134; C1713; J0171; J0696; J1100; J1170; J2270; J2370; J2405; J2795; A9270-GY